=== PATIENT | female | born 1950 | race Asian ===

== ENCOUNTER 2019-02-03 19:44 | Emergency (ER) | payer OTHER ==
[~2019-02-03] VITALS: Ht 157.5 cm; Wt 64.9 kg
[2019-02-03 20:02] VITALS: Ht 157.5 cm; Wt 64.9 kg
[2019-02-03 20:42] LABS: BASOPHIL % 0.7 % (0-2); PLATELET COUNT 244 x10^3mcL (130-400); RED CELL DISTRIBUTION WIDTH 14.1 % (11.5-14.5)
[2019-02-03 20:52] LABS: CALCIUM 9.4 mg/dL (8.5-10.1); CARBON DIOXIDE 28.9 mmol/L (21-32); CHLORIDE SERUM 104 mmol/L (98-107); CREATININE SERUM 0.8 mg/dL (0.6-1.0); GFR1 > 60 mL/min; GLUCOSE SERUM 96 mg/dL (74-106); POTASSIUM SERUM 4.1 mmol/L (3.5-5.1); SODIUM SERUM 141 mmol/L (136-145)
[2019-02-03 20:57] LABS: ALKALINE PHOSPHATASE 61 U/L (46-116); ALT/SGPT 38 U/L (14-59); AST/SGOT 20 U/L (15-37); BILIRUBIN TOTAL 0.5 mg/dL (0.20-1.00); TOTAL PROTEIN, SERUM 8.2 g/dL (6.4-8.2)
[2019-02-03 23:07] VITALS: BP 157/104
== END 2019-02-03 23:07 | disposition home or self-care (01) ==
LOC: ED 19:44
PROVIDERS: Emergency Medicine
DX: I10 Essential (primary) hypertension (principal); R51 Headache; R42 Dizziness and giddiness; R11.10 Vomiting, unspecified; H53.8 Other visual disturbances
CPT/HCPCS: 36415; J2270; J2405; Q0162

== ENCOUNTER 2019-10-12 14:58 | Emergency (ER) | payer OTHER ==
[~2019-10-12] VITALS: Ht 157.5 cm; Wt 64.9 kg
[2019-10-12 15:37] VITALS: Ht 157.5 cm; Wt 64.9 kg
[2019-10-12 17:18] VITALS: BP 151/83
== END 2019-10-12 17:18 | disposition home or self-care (01) ==
LOC: ED 14:58
DX: S01.81XA Laceration without foreign body of other part of head, initial encounter (principal); I10 Essential (primary) hypertension; M10.9 Gout, unspecified; W10.8XXA Fall (on) (from) other stairs and steps, initial encounter; Y93.89 Activity, other specified; Y92.89 Other specified places as the place of occurrence of the external cause; Y99.8 Other external cause status
CPT/HCPCS: J2001

== ENCOUNTER 2019-10-16 09:11 | Emergency (ER) | payer OTHER ==
[~2019-10-16] VITALS: Ht 154.9 cm; Wt 65.3 kg
[2019-10-16 09:13] VITALS: Ht 154.9 cm; Wt 65.3 kg
[2019-10-16 10:05] VITALS: BP 137/79
== END 2019-10-16 10:05 | disposition home or self-care (01) ==
LOC: ED 09:11
DX: S01.81XD Laceration without foreign body of other part of head, subsequent encounter (principal); M10.9 Gout, unspecified; I10 Essential (primary) hypertension; X58.XXXD Exposure to other specified factors, subsequent encounter